=== PATIENT | male | born 1965 | race Caucasian/White ===

== ENCOUNTER 2019-06-23 11:03 | Emergency (ER) | payer OTHER ==
[~2019-06-23] VITALS: Ht 175.3 cm; Wt 81.8 kg
--- NOTE | 2019-06-23 11:30 | PHYS DOC ---
Past History Past Medical History: High Cholesterol, Hypertension, Other Additional Past Medical Histor: restless leg syndrome Past Surgical History: No Surgical History Smoking: Non-smoker Alcohol Use: Occasionally Drug Use: None Adult General Chief Complaint Chief Complaint: MULTIPLE TRAUMA/FALL HPI HPI Patient is a 54 year old male who presents with left flank pain s/p blunt trauma to his back, ribs, and abdomen around 20-30 minutes prior to arrival. Patient states that he was using a device to pull out a tree trunk from the ground when the device snapped off from its chain and flew towards his left side. Patient denied LOC or head trauma at the time. Denies neck pain. He states he had his "wind knocked out of him" and had to set himself on the ground to catch his breath. Denies fall. Reports to having mild nausea, but denies vomiting at this time. Has history of blunt trauma to his left ribs around 2 years ago. He currently rates his pain at 9/10. Reports pain upon deep breathing. Patient has SOB at rest. Denies dizziness, lightheadedness, or headaches. Denies use of blood thinners. Review of Systems Review of Systems Constitutional: Denies fever or chills Eyes: Denies redness or eye pain HENT: Denies nasal congestion or sore throat Respiratory: Denies cough, reports shortness of breath with chest discomfort with deep breaths Cardiovascular: Denies palpitations; reports left chest wall pain GI: Reports left sided abdominal pain and nausea, denies vomiting : Denies dysuria or hematuria, reports left pelvic pain Musculoskeletal: Reports left flank pain, denies joint pain Integument: Denies rash; reports abrasion to left flank Neurologic: Denies headache, focal weakness or sensory changes Complete systems were reviewed and found to be within normal limits, except as documented in this note. Allergies Allergies Allergies Coded Allergies Type Severity Reaction Last Updated Verified No Known Drug Allergies 06/23/19 No Physical Exam Physical Exam Constitutional: Well developed, well nourished, no acute distress, non-toxic appearance HENT: Normocephalic, atraumatic, oropharynx moist Eyes: PERRL, EOMI, conjunctiva normal, no discharge Neck: Normal range of motion, no midline tenderness, supple Cardiovascular: Heart rate normal, regular rhythm Lungs & Thorax: Bilateral breath sounds clear to auscultation, no wheezing, tenderness with palpation of left lower chest wall Abdomen: Soft, tenderness with palpation of LUQ and LLQ; pelvis stable and nontender Skin: Warm, dry, no erythema, small abrasion to left flank Back: Tenderness on palpation left paraspinal musculature, ribs, and spinous processes of T6-T12, left CVA tenderness Extremities: No tenderness, ROM intact, no edema Neurologic: Alert and oriented X 3, normal motor function, normal sensory function, no focal deficits noted Psychologic: Affect normal, judgment normal Current Patient Data Vital Signs Vital Signs Date Time Temp Pulse Resp B/P (MAP) Pulse Ox O2 Delivery O2 Flow Rate FiO2 06/23/19 11:03 97.9 74 18 120/80 (93) 100 Room Air Radiology/Procedures Radiology/Procedures PROCEDURE: CT CHEST ABD PELVIS W/CONTRAST CT CHEST ABD PELVIS W/CONTRAST Clinical Indication: Left chest wall and flank pain after being hit heart on left side COMPARISON: None TECHNIQUE: Multiple contiguous axial images were obtained throughout the chest, abdomen, and pelvis with the use of IV contrast. Axial images were reformatted into coronal and sagittal planes. 70 mL Omnipaque 300 was administered. One or more of the following dose reduction techniques were utilized: Automated exposure control (AEC), Adjustment of mA and/or kV according to patient size, Use of iterative reconstruction technique such as ASiR, CT scan done according to ALARA and image gently/image wisely. Findings: The thyroid is symmetric. There is no axillary, mediastinal, or hilar adenopathy. Calcified mediastinal and hilar lymph nodes consistent with remote ischemic disease. The thoracic aorta diameter is normal. The cardiac size is normal. There is no pericardial effusion. The central airways are patent. Indeterminate right middle lobe nodule measuring 0.4 cm (series 4 image 52). Calcified pulmonary granulomas. There is no focal consolidation. No pleural effusion is observed. There is no pneumothorax. The liver, gallbladder, spleen, and pancreas are unremarkable. There is no significant mesenteric or retroperitoneal adenopathy identified. Visualized portions of the bowel are grossly unremarkable. Left inferior pole renal parenchymal contusion/hematoma measuring up to 4.2 cm. Left adrenal and perinephric stranding. 1.3 cm intermediate density (Hounsfield units) structure along the inferior aspect of the left adrenal gland. Stranding also noted in the left perirenal space, the left posterior pararenal space, and the left paracolic gutter. The bladder and distal ureters are unremarkable. There is no significant pelvic ascites. No significant iliac or inguinal adenopathy is identified. No acute osseous abnormality. Old healed left rib fractures. IMPRESSION: 1. Left inferior pole renal parenchyma contusion/acute hematoma measuring 4.2 cm. 2. Left adrenal hematoma versus indeterminate nodule measuring 1.3 cm. 3. Left perinephric and periadrenal stranding, likely edema and/or trace blood products. Stranding also noted in the left perirenal space, pararenal space, and paracolic gutter. 4. No evidence of acute pulmonary or mediastinal injury. 5. Indeterminate right middle lobe nodule measuring 0.4 cm. Consider optional 12 month follow-up chest CT if patient has risk factors (history of malignancy, history of smoking, etc.). Electronically signed by: Graham Nava MD (06/23/2019 1:08 PM) [id number] Course & Med Decision Making Course & Med Decision Making Pertinent Labs and Imaging studies reviewed. (See chart for details) Patient is a 54-year-old male who presents with left flank pain status post blunt trauma to his left side. Patient states that he was using a device to pull out a tree trunk from the ground when the device snapped off its chain and flew towards his left side. He denies loss of consciousness or head trauma or neck pain. Patient neurologically intact. Significant pain to left lateral chest wall and CVA. Pain and nausea addressed. IVF were started. Labs obtained and posted to chart. H/H stable. BUN/Creat, Lipase, and LFTs stable. UA was positive for presence of microscopic hematuria. CT chest/abd/pel vis with IV contrast showed left inferior pole renal parenchyma contusion/acute hematoma, left adrenal hematoma, and stranding noted in the left perinephric, periadrenal, perirenal, and pararenal spaces. No pulmonary contusion or rib fractures were seen. Given traumatic findings, concern for need for admission for further evaluation and trauma consultation. Discussed findings and plan with patient, who is accepting of transfer to [facility]. Utilized [facility] transfer center. Discussed case with Dr. Alcocer (trauma surgery) who is accepting of transfer to [facility]. Discussed findings and plan with patient and family, who acknowledge understanding and agreement. Dragon Disclaimer Dragon Disclaimer This electronic medical record was generated, in whole or in part, using a voice recognition dictation system. Departure Departure: Impression: Primary Impression: Renal hematoma, left Additional Impression: Adrenal hematoma Disposition: 05 TRANSFER OTHER ([facility] ) Condition: STABLE Referrals: PCP,NO (PCP) Problem Qualifiers Primary Impression: Renal hematoma, left Encounter type: initial encounter Qualified Codes: S37.012A - Minor contusion of left kidney, initial encounter Additional Impression: Adrenal hematoma Encounter type: initial encounter Qualified Codes: S37.812A - Contusion of adrenal gland, initial encounter ANDERSON PHILIP DO Jun 23, 2019 11:30
[2019-06-23] MEDS ORDERED: KETOROLAC 15 MG/ML VIAL. IVP ONE (11:45)
[2019-06-23] MEDS ORDERED: IV NORMAL SALINE 1,000ML 1,000 ML IV ONE (11:45)
[2019-06-23] MEDS ORDERED: CONTRAST GIVEN MC PRN (12:00)
[2019-06-23] MEDS ORDERED: ONDANSETRON PF 4 MG/2 ML VIAL. IVP ONE (12:00)
[2019-06-23] MEDS ORDERED: IOHEXOL 300 MG/ML 75 ML VIAL. IV ONE (12:00)
[2019-06-23 12:02] LABS: BASO # 0.1 x10^3/uL (0.0-0.2); BASO % 1 % (0-3); EOS # 0.3 x10^3/uL (0.0-0.7); EOS % 4 % (0-3); HEMATOCRIT 44.5 % (39.0-53.0); HEMOGLOBIN 14.6 g/dL (13.0-17.5); LYMPH # 1.5 x10^3/uL (1.0-4.8); LYMPH % 20 % (24-48); MEAN CORPUSCULAR HEMOGLOBIN 29 pg (25-35); MEAN CORPUSCULAR HGB CONC 33 g/dL (31-37); MEAN CORPUSCULAR VOLUME 88 fL (79-100); MONO # 0.5 x10^3/uL (0.0-1.1); MONO % 7 % (0-9); NEUT # 4.9 x10^3uL (1.8-7.7); NEUT % 68 % (31-73); PLATELET COUNT 259 x10^3/uL (140-400); RED BLOOD COUNT 5.08 x10^6/uL (4.30-5.70); RED CELL DISTRIBUTION WIDTH 14.1 % (11.5-14.5); WHITE BLOOD COUNT 7.2 x10^3/uL (4.0-11.0)
[2019-06-23 12:02] LABS: BILIRUBIN,URINE NEG (NEG); CLARITY,URINE HAZY; COLOR,URINE YELLOW; GLUCOSE,URINE NEG (NEG); NITRITE,URINE NEG (NEG); UROBILINOGEN,URINE 0.2 mg/dL (0.2 mg/dL)
[2019-06-23 12:03] LABS: BACTERIA,URINE FEW /HPF (0-FEW); GRANULAR CASTS,URINE FEW /HPF; HYALINE CASTS, URINE OCC /HPF; RBC,URINE >40 /HPF (0-2); SQUAMOUS EPITHELIAL CELL,UR OCC /LPF
[2019-06-23 12:07] LABS: CALCIUM 8.9 mg/dL (8.5-10.1); CREATININE 1.1 mg/dL (0.7-1.3); GFR 70.3; POTASSIUM 3.7 mmol/L (3.5-5.1)
[2019-06-23 12:14] LABS: ALBUMIN 3.5 g/dL (3.4-5.0); ALBUMIN/GLOBULIN RATIO 1.2 (1.0-1.7); MAGNESIUM 1.8 mg/dL (1.8-2.4); TOTAL BILIRUBIN 0.3 mg/dL (0.2-1.0); TOTAL PROTEIN 6.4 g/dL (6.4-8.2)
--- NOTE | 2019-06-23 13:11 | RAD ---
CT CHEST ABD PELVIS W/CONTRAST Clinical Indication: Left chest wall and flank pain after being hit heart on left side COMPARISON: None TECHNIQUE: Multiple contiguous axial images were obtained throughout the chest, abdomen, and pelvis with the use of IV contrast. Axial images were reformatted into coronal and sagittal planes. 70 mL Omnipaque 300 was administered. One or more of the following dose reduction techniques were utilized: Automated exposure control (AEC), Adjustment of mA and/or kV according to patient size, Use of iterative reconstruction technique such as ASiR, CT scan done according to ALARA and image gently/image wisely. Findings: The thyroid is symmetric. There is no axillary, mediastinal, or hilar adenopathy. Calcified mediastinal and hilar lymph nodes consistent with remote ischemic disease. The thoracic aorta diameter is normal. The cardiac size is normal. There is no pericardial effusion. The central airways are patent. Indeterminate right middle lobe nodule measuring 0.4 cm (series 4 image 52). Calcified pulmonary granulomas. There is no focal consolidation. No pleural effusion is observed. There is no pneumothorax. The liver, gallbladder, spleen, and pancreas are unremarkable. There is no significant mesenteric or retroperitoneal adenopathy identified. Visualized portions of the bowel are grossly unremarkable. Left inferior pole renal parenchymal contusion/hematoma measuring up to 4.2 cm. Left adrenal and perinephric stranding. 1.3 cm intermediate density (Hounsfield units) structure along the inferior aspect of the left adrenal gland. Stranding also noted in the left perirenal space, the left posterior pararenal space, and the left paracolic gutter. The bladder and distal ureters are unremarkable. There is no significant pelvic ascites. No significant iliac or inguinal adenopathy is identified. No acute osseous abnormality. Old healed left rib fractures. IMPRESSION: 1. Left inferior pole renal parenchyma contusion/acute hematoma measuring 4.2 cm. 2. Left adrenal hematoma versus indeterminate nodule measuring 1.3 cm. 3. Left perinephric and periadrenal stranding, likely edema and/or trace blood products. Stranding also noted in the left perirenal space, pararenal space, and paracolic gutter. 4. No evidence of acute pulmonary or mediastinal injury. 5. Indeterminate right middle lobe nodule measuring 0.4 cm. Consider optional 12 month follow-up chest CT if patient has risk factors (history of malignancy, history of smoking, etc.). Electronically signed by: Graham Nava MD (06/23/2019 1:08 PM) [id number]
[2019-06-23 13:14] VITALS: BP 116/74
== END 2019-06-23 14:33 | disposition short-term general hospital (02) ==
LOC: ER 11:03
DX: S37.012A Minor contusion of left kidney, initial encounter (principal); S37.812A Contusion of adrenal gland, initial encounter; E78.00 Pure hypercholesterolemia, unspecified; I10 Essential (primary) hypertension; X58.XXXA Exposure to other specified factors, initial encounter; Y93.89 Activity, other specified; Y92.89 Other specified places as the place of occurrence of the external cause; Y99.8 Other external cause status
CPT/HCPCS: 36415; 71260; 74177; 80053; 81001; 83735; 85025; 85610; 85730; 96374; 96375; 99285; J1885; J2405; J3010; Q9967; J7030